=== PATIENT | female | born 1965 | race Caucasian/White ===

== ENCOUNTER 2018-12-22 15:04 | Observation (INO) ==
[2018-12-22] MEDS ORDERED: Isovue-370 500 ML BOTTLE IVP ONE (15:09)
[2018-12-22] MEDS ORDERED: *HR* FentaNYL (PF) 100 MCG/2 ML VIAL IVP ONE (15:12)
--- NOTE | 2018-12-22 15:12 | Emergency Department Note ---
Disposition Clinical Impression: Atypical chest pain Disposition: Home, Self-Care Condition: Good Time of Disposition: 17:45 General Adult HPI - General Chief complaint: ED Chest Pain Stated complaint: chest pain Time Seen by Provider: 12/22/18 15:08 - Related Data Home Medications Medication Instructions Recorded Confirmed Amitriptyline [Elavil] 25 mg PO HS 03/18/15 07/22/15 Aspirin 81 mg PO HS 03/18/15 07/22/15 Cholecalciferol (Vitamin D3) 4,000 unit PO TUTH 03/18/15 07/22/15 [Vitamin D] Duloxetine [Cymbalta] 30 mg PO BID 03/18/15 07/22/15 Lamotrigine [Lamictal] 100 mg PO HS 03/18/15 03/18/15 Levothyroxine [Synthroid] 88 mcg PO HS 03/18/15 07/22/15 Meloxicam [Mobic] 15 mg PO DAILY 03/18/15 07/22/15 Naproxen [Naprosyn] 500 mg PO PRN PRN 12/22/18 Pepcid 12/22/18 12/22/18 Tizanidine HCl [Zanaflex] 2 mg PO BID 12/22/18 Previous Rx's Medication Instructions Recorded Oxycodone HCl/Acetaminophen 1 tab PO Q8H #15 tablet 07/22/15 [Percocet 5-325 mg Tablet] Ibuprofen [Motrin] 600 mg PO Q6HR PRN #20 tab 05/01/17 Albuterol Sulfate [Albuterol 2 puff IH Q6HR #1 inh 05/26/17 Inhaler] Gabapentin [Neurontin] 300 mg PO TID #30 capsule 08/30/17 Meclizine [Antivert] 12.5 mg PO TID PRN #15 tablet 11/10/18 Methocarbamol [Robaxin] 750 mg PO Q8HR PRN 4 Days #12 12/22/18 tablet Nabumetone [Relafen] 500 mg PO BID 4 Days #8 tablet 12/22/18 Allergies Allergy/AdvReac Type Severity Reaction Status Date / Time No Known Allergies Allergy Verified 11/10/18 08:56 Past Medical History - Past Medical History Medical history: Reports: migraine, thyroid disease Surgical history: Reports: non-contributory Psychiatric history: Reports: anxiety 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 - Social History Smoking Status: Never smoker Smokeless Tobacco Status: No Alcohol use: Reports: none Drug use: Reports: none Course Vital Signs Temperature 98.2 F 12/22/18 15:07 Pulse Rate 79 12/22/18 15:07 Respiratory Rate 20 12/22/18 15:07 Blood Pressure 155/90 12/22/18 15:07 O2 Sat by Pulse Oximetry 100 12/22/18 15:07 Temperature 98.2 F 12/22/18 15:07 Pulse Rate 82 12/22/18 16:27 Respiratory Rate 17 12/22/18 16:27 Blood Pressure 115/69 12/22/18 16:27 O2 Sat by Pulse Oximetry 100 12/22/18 16:27 Oxygen Delivery Oxygen Delivery Room Air Medical Decision Making - Lab Data Result diagrams: 12/22/18 15:20 12/22/18 15:20 Lab Results 12/22/18 12/22/18 12/22/18 Range/Units 15:20 15:20 15:20 WBC 8.0 (4.3-11.1) K/mcL RBC 5.14 H (3.82-4.97) M/mcL Hgb 15.2 (11.5-15.4) g/dL Hct 46.3 H (35.3-44.9) % MCV 90.1 (83.0-100.0) fL MCH 29.6 (28.0-33.3) pg MCHC 32.8 (31.6-35.5) g/dL RDW 13.4 (11.5-14.5) % Plt Count 276 (140-400) K/mcL MPV 9.8 (9.4-12.4) fL Immature Gran % 0.5 (0-4) % Seg Neutrophils % 60.3 % Lymphocytes % 29.9 % Monocytes % 7.4 % Eosinophils % 1.4 % Basophils % 0.5 % Neutrophils # 4.8 (1.6-8.9) K/mcL Lymphocytes # 2.4 (0.6-4.6) K/mcL Monocytes # 0.6 (0.0-1.3) K/mcL Eosinophils # 0.1 (0.0-0.6) K/mcL Basophils # 0.0 (0.0-0.2) K/mcL PT 11.4 (9.4-12.1) Seconds INR 1.0 APTT 31.1 (26.0-36.0) Seconds D-Dimer 401 (0-500) ng/mLFEU Sodium 142 (136-145) mEq/L Potassium 3.2 L (3.5-5.1) mEq/L Chloride 106 (98-107) mEq/L Carbon Dioxide 25 (23-29) mEq/L BUN 16 (6-20) mg/dL Creatinine 0.96 (0.60-1.20) mg/dL Est GFR ( Amer) > 60 (> 60) Est GFR (Non-Af Amer) > 60 (> 60) BUN/Creatinine Ratio 17 (6-26) Glucose 99 (70-105) mg/dL Calculated Osmolality 295 (280-300) Calcium 9.8 (8.6-10.3) mg/dL Troponin I < 0.03 (< 0.04) ng/mL Lipase 25 (11-82) Units/L Attestation Statement - Attestation Attestation: I reviewed the residents documentation and agree with the residents assessment and plan of care. I have personally had face to face time with the patient. (Brief History, Brief Exam, and MDM) I personally supervised and was present for the ro/critical portions of the following procedures completed by the resident: (add procedures performed here). I attest to supervising the resident physician interpretation of the ECG Patient presents to the emergency department by EMS with chest pain. She appears mildly uncomfortable on exam. Initial concern for aortic pathology. CT dissection study ordered.
--- NOTE | 2018-12-22 15:17 | Emergency Department Note ---
Disposition Clinical Impression: Atypical chest pain Disposition: Home, Self-Care Condition: Good Instructions: Chest Pain (ED) Reasons to Return/Additional Instructions: Please return to the Emergency Department if you experience worsening of your current symptoms or any new symptoms including: Fever/chills, feeling like you might pass out, severe headache, lightheadedness/dizziness, confusion, difficulty walking, frequent falling or any trauma, vision changes, ringing in the ears, significant nose bleeding, difficult or painful swallowing, swelling of your neck or sensation of choking, chest pain, shortness of breath, abdominal pain/nausea/vomiting, blood in your urine or stool, or any other symptoms that may be concerning to you. Please follow up with your primary care physician or the [facility] within the next 24 hours Follow-up to previously scheduled gastroenterology appointment on Sunday. Take prescribed medication(s) exactly as instructed. Prescriptions: Nabumetone [Relafen] 500 mg PO BID 4 Days #8 tablet Methocarbamol [Robaxin] 750 mg PO Q8HR PRN 4 Days #12 tablet PRN Reason: Pain Referrals: NONE,PCP [Primary Care Provider] - [facility] [Outside] Forms: ED Satisfaction Letter Time of Disposition: 16:23 Chest Pain HPI - General Chief Complaint: ED Chest Pain Stated Complaint: chest pain Time Seen by Provider: 12/22/18 15:08 Source: patient, EMS Mode of arrival: EMS Limitations: no limitations Vital Signs Reviewed: Yes Nursing Notes Reviewed: Yes - History of Present Illness HPI Narrative: 53-year-old female past medical history of thyroid disease, previous workups for TIA, dysphagia which is scheduled for manometry this week, presenting for one hour history of sudden onset sharp ripping/tearing chest pain. The patient states she has been having discomfort for the past 2 days while driving to the store today had a sudden onset of severe chest pain which radiated from her midsternal region into her neck and right shoulder and radiated into her back. Patient initially presented to the urgent care where 911 was called and patient was transported to the ED via EMS. Patient was given 324 mg of aspirin at the urgent care prior to ED arrival. Patient states she has no past medical history of hypertension or history of aneurysms. Patient states that she is having difficulty breathing with this as well as severe anxiety. Patient states she is lightheaded dizzy and has numbness and tingling in her upper extremities. Patient denies nausea or vomiting. Upon my initial examination patient is sitting upright in hospital bed she is tachycardic, tachypneic, appears to be extremely anxious, she appears to be in [id number] distress due to her pain, my concern at this time is for dissection as she is stating neurological symptoms in the setting of chest pain radiating into her back. I will order a CT dissection study at this time with ED chest pain evaluation to include troponin and EKGs abdominal labs. Pt complaint: chest pain Onset (ago): hour(s) (H and states pain began one hour prior to arrival) Duration: constant Onset: during rest Pain Location: substernal Severity: severe Severity scale (1-10): 10 Quality: sharp, ripping Pain Radiation: RUE, back, neck, jaw/teeth Associated symptoms: Reports: dyspnea Treatments prior to arrival chest pain: aspirin (Patient was given 324 mg of aspirin at urgent care prior to EMS arrival.) - Related Data Home Medications Medication Instructions Recorded Confirmed Amitriptyline [Elavil] 25 mg PO HS 03/18/15 07/22/15 Aspirin 81 mg PO HS 03/18/15 07/22/15 Cholecalciferol (Vitamin D3) 4,000 unit PO TUTH 03/18/15 07/22/15 [Vitamin D] Duloxetine [Cymbalta] 30 mg PO BID 03/18/15 07/22/15 Lamotrigine [Lamictal] 100 mg PO HS 03/18/15 03/18/15 Lansoprazole [Prevacid] 30 mg PO HS 03/18/15 07/22/15 Levothyroxine [Synthroid] 100 mcg PO HS 03/18/15 07/22/15 Meloxicam [Mobic] 15 mg PO DAILY 03/18/15 07/22/15 Previous Rx's Medication Instructions Recorded Oxycodone HCl/Acetaminophen 1 tab PO Q8H #15 tablet 07/22/15 [Percocet 5-325 mg Tablet] Ibuprofen [Motrin] 600 mg PO Q6HR PRN #20 tab 05/01/17 Albuterol Sulfate [Albuterol 2 puff IH Q6HR #1 inh 05/26/17 Inhaler] Gabapentin [Neurontin] 300 mg PO TID #30 capsule 08/30/17 Meclizine [Antivert] 12.5 mg PO TID PRN #15 tablet 11/10/18 Methocarbamol [Robaxin] 750 mg PO Q8HR PRN 4 Days #12 12/22/18 tablet Nabumetone [Relafen] 500 mg PO BID 4 Days #8 tablet 12/22/18 Allergies Allergy/AdvReac Type Severity Reaction Status Date / Time No Known Allergies Allergy Verified 11/10/18 08:56 Review of Systems: *See History of Present Illness for more detail Constitutional: Denies: fever, chills Cardiovascular: Admits: chest pain radiating into her back, neck/jaw and upper right extremity. Respiratory: Admits: dyspnea Gastrointestinal: Denies: abdominal pain, nausea, vomiting, diarrhea, constipation, hematemesis, melena, hematochezia Genitourinary: Denies: hematuria Musculoskeletal: Denies: back pain, neck pain Neurological: Patient admits to weakness, lightheadedness/dizziness numbness and paresthesias. Denies: headache Endocrine: Denies: fatigue All systems ED: reviewed and negative except as stated. 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 Anterior neck is supple without swelling. *Chest: Symmetric chest wall rise *Heart: Cardiac rate is tachycardic with regular rhythm with S1 and S2 , no S3 or S4 appreciated, no murmurs, gallops, rubs, or clicks. *Lungs: Lungs are clear to auscultation bilaterally, without accessory muscle use or prolonged expiratory phase. No wheezes, rhonchi or stridor appreciated. Abdomen: Abdomen is flat, soft to palpation, normal bowel sounds. No abdominal b ruit auscultated. Non-distended, non-rigid, no organomegaly, no ascites appreciated. No pulsatile mass, no tenderness or guarding to palpation in all four quadrants, no rebound Extremities: Normal capillary refill without evidence of pedal edema, joint swelling or erythema. Pulses/motor intact in all 4 extremities. Psychiatric exam: Patient appears extremely anxious Integumentary: warm, dry, intact, normal color. No rash, cyanosis, diaphoresis, erythema, or pallor - General Limitations: no limitations General appearance: alert, in no apparent distress Course Course Narrative: CT scan dissection study ED chest pain workup with troponin EKG/old EKG chest x-ray Abdominal labs Patient started received aspirin at urgent care, I will give fentanyl this time for pain management with likely nitroglycerin trial after CT scan if pain is not resolved. Vital Signs Temperature 98.2 F 12/22/18 15:07 Pulse Rate 79 12/22/18 15:07 Respiratory Rate 20 12/22/18 15:07 Blood Pressure 155/90 12/22/18 15:07 O2 Sat by Pulse Oximetry 100 12/22/18 15:07 Temperature 98.2 F 12/22/18 15:07 Pulse Rate 80 12/22/18 15:15 Respiratory Rate 20 12/22/18 15:15 Blood Pressure 131/70 12/22/18 15:15 O2 Sat by Pulse Oximetry 100 12/22/18 15:15 Oxygen Delivery Oxygen Delivery Room Air Chest Pain - MDM Narrative Medical decision making narrative: The patient's laboratory, imaging an EKG results show no acute pathology. Shared decision making was utilized with the patient and her family at bedside discussing discharge home versus admission the hospital. Patient states that she would prefer discharge at this time with follow-up with her primary care physician and gastroenterology at her previously scheduled appointment on Sunday. Patient will be sent home with ED return precautions and instructions to keep these follow-ups as previously scheduled as well as her PCP within 24 hours. Patient was sent home with Relafen and Robaxin for the next 4 days for the management of her symptoms. Patient verbalizes her understanding and agreement this plan is hemodynamically stable time of discharge. - Lab Data Lab results reviewed: Yes I reviewed the patient's lab results. Result diagrams: 12/22/18 15:20 12/22/18 15:20 Lab Results 07/21/19 07/21/19 07/21/19 Range/Units 15:20 15:20 15:20 WBC 8.0 (4.3-11.1) K/mcL RBC 5.14 H (3.82-4.97) M/mcL Hgb 15.2 (11.5-15.4) g/dL Hct 46.3 H (35.3-44.9) % MCV 90.1 (83.0-100.0) fL MCH 29.6 (28.0-33.3) pg MCHC 32.8 (31.6-35.5) g/dL RDW 13.4 (11.5-14.5) % Plt Count 276 (140-400) K/mcL MPV 9.8 (9.4-12.4) fL Immature Gran % 0.5 (0-4) % Seg Neutrophils % 60.3 % Lymphocytes % 29.9 % Monocytes % 7.4 % Eosinophils % 1.4 % Basophils % 0.5 % Neutrophils # 4.8 (1.6-8.9) K/mcL Lymphocytes # 2.4 (0.6-4.6) K/mcL Monocytes # 0.6 (0.0-1.3) K/mcL Eosinophils # 0.1 (0.0-0.6) K/mcL Basophils # 0.0 (0.0-0.2) K/mcL PT 11.4 (9.4-12.1) Seconds INR 1.0 APTT 31.1 (26.0-36.0) Seconds D-Dimer 401 (0-500) ng/mLFEU Sodium 142 (136-145) mEq/L Potassium 3.2 L (3.5-5.1) mEq/L Chloride 106 (98-107) mEq/L Carbon Dioxide 25 (23-29) mEq/L BUN 16 (6-20) mg/dL Creatinine 0.96 (0.60-1.20) mg/dL Est GFR ( Amer) > 60 (> 60) Est GFR (Non-Af Amer) > 60 (> 60) BUN/Creatinine Ratio 17 (6-26) Glucose 99 (70-105) mg/dL Calculated Osmolality 295 (280-300) Calcium 9.8 (8.6-10.3) mg/dL Troponin I < 0.03 (< 0.04) ng/mL Lipase 25 (11-82) Units/L - Radiology Data Radiology results reviewed: Yes I reviewed the patient's radiology results. CT Dissection 12/22/18 15:09 IMPRESSION: Negative CTA chest, abdomen and pelvis with no evidence of acute process and unremarkable appearance of the aorta. D/ / Chandana Montes MD / Chandana Montes MD Interpreting Provider: Chandana Montes MD - EKG Data EKG attestation: Yes I reviewed and interpreted this EKG. EKG results narrative: Patient's EKG shows sinus rhythm with a heart rate of 73 bpm, NC interval of 139 ms, QRS samaritan of 91 ms, QT/QTc interval 39/429 ms respectively. There are no significant ST segment elevations, depressions, pathologic Q waves, abnormal T-wave inversions, nor any signs of acute ischemic change. This EKG that was performed today is generally consistent with prior EKG that was performed on 11/10/2018. Heart Score - Score History: Moderately Suspicious EKG: Normal Age: 45-65 Risk Factors: 1-2 risk factors Troponin: Less than normal limit HEART Score Total: 3
[2018-12-22 15:31] LABS: Basophils % 0.5 %; Eosinophils # 0.1 K/mcL (0.0-0.6); Eosinophils % 1.4 %; Hematocrit 46.3 % (35.3-44.9); Hemoglobin 15.2 g/dL (11.5-15.4); Immature Granulocytes % 0.5 % (0-4); Lymphocytes # 2.4 K/mcL (0.6-4.6); Lymphocytes % 29.9 %; Mean Corpuscular HGB Conc 32.8 g/dL (31.6-35.5); Mean Corpuscular Hemoglobin 29.6 pg (28.0-33.3); Mean Corpuscular Volume 90.1 fL (83.0-100.0); Mean Platelet Volume 9.8 fL (9.4-12.4); Monocytes # 0.6 K/mcL (0.0-1.3); Monocytes % 7.4 %; Neutrophils # 4.8 K/mcL (1.6-8.9); Platelet Count 276 K/mcL (140-400); Red Blood Count 5.14 M/mcL (3.82-4.97); Red Cell Distribution Width 13.4 % (11.5-14.5); Segmented Neutrophils % 60.3 %
[2018-12-22 15:41] LABS: Prothrombin Time 11.4 Seconds (9.4-12.1)
[2018-12-22 15:43] LABS: Activated Partial Thrombo Time 31.1 Seconds (26.0-36.0)
[2018-12-22 15:56] LABS: BUN/Creatinine Ratio 17 (6-26); Blood Urea Nitrogen 16 mg/dL (6-20); Calcium 9.8 mg/dL (8.6-10.3); Carbon Dioxide 25 mEq/L (23-29); Chloride 106 mEq/L (98-107); Glucose 99 mg/dL (70-105); Lipase 25 Units/L (11-82); Osmolality,Calculated 295 (280-300); Potassium 3.2 mEq/L (3.5-5.1); Sodium 142 mEq/L (136-145); Troponin I < 0.03 ng/mL (< 0.04); eGFR For African Americans > 60 (> 60); eGFR For Non-African Americans > 60 (> 60)
[2018-12-22] MEDS ORDERED: *HR* HYDROcodone/Acet 5/325 mg TABLET PO PRN (17:17)
[2018-12-22] MEDS ORDERED: Ondansetron 4 MG/2 ML VIAL IVP PRN (17:17)
[2018-12-22] MEDS ORDERED: Naloxone 0.4 MG/ML INJ IVP PRN (17:17)
[2018-12-22] MEDS ORDERED: Acetaminophen 325 MG TABLET PO PRN (17:17)
--- NOTE | 2018-12-22 17:31 | Internal Med History&Physical ---
Date of Encounter: 12/22/18 Time of Encounter: 09:00 Internal Medicine - H&P: HPI Chief complaint: Chest pain Admitted From: Home Plans for Post Hospital Care: Home History of present illness: Ms. Ferreira is a 53 year old female with history of migraine, depression, anxiety, hypothyroidism who came into the hospital with chest pain. Her symptoms started this a.m. when she had mild substernal discomfort lasted for 1015 minutes and then went away. She was driving when she had similar substernal chest pain, radiating to the right side of her chest and to her left neck and back, 9/10, pressure-like pain, with no aggravating or aggravating factors. Patient denied nausea/vomiting/jaw or left arm pain. Her pain is not associated with food intake or exertion. Her pain is not interfering with her sleep. She has no recent leg swelling, long trip or travel. She is not on hormone therapy and she does not smoke. Patient used to have panic attacks but her pain today was different than her previous panic attacks. She denied any palpitation or shortness of breath. Of note, patient has been evaluated recently with barium swallow, EGD for dysphagia. Her dysphagia started a few years ago after her tonsillectomy. She does not remember the result of her tests but she is scheduled for esophageal manometry next Sunday. She denied any recent weight loss or oral thrush. She denied any heartburn and she is on PPI daily. She denied recent use of NSAIDs however she takes naproxen when needed for migraine. Patient had recent CT scan 1 month ago with negative findings for any sign of obstruction. She also had CT a head and neck and the same time with negative findings as well. In the ER, patient was hemodynamically stable. First troponin was negative, EKG did not reveal any ischemic changes. CT dissection study was negative for any dissection. D-dimer was negative. Patient will be admitted to the floor to rule out ACS. Past Med Surg Social Fam HX - Past Medical History Source: patient Medical history: arthritis, migraine, thyroid disease Additional medical history: hypothyroidism Psychiatric history: anxiety - Past Surgical History Surgical History: non-contributory Additional surgical history: vein stripping. right breast lumpectomy. LOOP recorder in/out. wisdom teeth extraction. cyst removed from head. bilateral eyes. right foot. throat sx x3 - Social History Smoking Status: Never smoker Smokeless Tobacco Status: No Alcohol use: none Drug use: none - Additional Family History Additional family history: Mother had CAD and stents at age of 70 Internal Medicine - H&P: Meds Amitriptyline [Elavil] 25 mg PO HS 03/18/15 [History] Aspirin 81 mg PO HS 03/18/15 [History] Cholecalciferol (Vitamin D3) [Vitamin D] 4,000 unit PO TUTH 03/18/15 [History] Duloxetine [Cymbalta] 30 mg PO BID 03/18/15 [History] Lamotrigine [Lamictal] 100 mg PO HS 03/18/15 [History] Levothyroxine [Synthroid] 88 mcg PO HS 03/18/15 [History] Meloxicam [Mobic] 15 mg PO DAILY 03/18/15 [History] Oxycodone HCl/Acetaminophen [Percocet 5-325 mg Tablet] 1 tab PO Q8H #15 tablet 07/22/15 [Rx] Ibuprofen [Motrin] 600 mg PO Q6HR PRN #20 tab 05/01/17 [Rx] Albuterol Sulfate [Albuterol Inhaler] 2 puff IH Q6HR #1 inh 05/26/17 [Rx] Gabapentin [Neurontin] 300 mg PO TID #30 capsule 08/30/17 [Rx] Meclizine [Antivert] 12.5 mg PO TID PRN #15 tablet 11/10/18 [Rx] Methocarbamol [Robaxin] 750 mg PO Q8HR PRN 4 Days #12 tablet 12/22/18 [Rx] Nabumetone [Relafen] 500 mg PO BID 4 Days #8 tablet 12/22/18 [Rx] Naproxen [Naprosyn] 500 mg PO PRN PRN 12/22/18 [History] Pepcid 12/22/18 [History] Tizanidine HCl [Zanaflex] 2 mg PO BID 12/22/18 [History] Allergy/AdvReac Type Severity Reaction Status Date / Time No Known Allergies Allergy Verified 11/10/18 08:56 All Systems PM: A 10-system review of systems was performed and is negative for pertinent findings except as documented above in the HPI. - Constitutional Vitals: Temp Pulse Resp BP Pulse Ox 98.2 F 82 17 115/69 100 12/22/18 15:07 12/22/18 16:27 12/22/18 16:27 12/22/18 16:27 12/22/18 16:27 Exam: General: Patient is alert, oriented 3. No distress. Head: Atraumatic, normal inspection, normocephalic. Eye: EOMI, PERRLA, no scleral icterus noted. ENT: Mucous membranes moist. No odontogenic infection noted. Neck: Normal inspection, no meningismus. Respiratory: No respiratory distress, rhonchi, or wheezes noted. Cardiovascular: Regular rate and regular rhythm, S1 and S2 audible. No murmurs, rubs, or gallops. GI: Soft, nondistended, normal bowel sounds. Extremities:No joint swelling, pedal edema, or tenderness noted. Neurological: Alert, oriented 3, no focal deficits. Psychiatric: normal affect, normal mood. Skin: Dry, intact, warm. Normal color. No rashes. Internal Med - H&P Results - Labs CBC & Chem 7: 12/22/18 15:20 12/22/18 15:20 Labs: Short CBC 12/22/18 Range/Units 15:20 WBC 8.0 (4.3-11.1) K/mcL Hgb 15.2 (11.5-15.4) g/dL Hct 46.3 H (35.3-44.9) % Plt Count 276 (140-400) K/mcL Neutrophils # 4.8 (1.6-8.9) K/mcL BMP 12/22/18 15:20 Sodium 142 Potassium 3.2 L Chloride 106 Carbon Dioxide 25 BUN 16 Creatinine 0.96 Glucose 99 Calcium 9.8 Cardiac Enzymes 12/22/18 Range/Units 15:20 Troponin I < 0.03 (< 0.04) ng/mL - EKG Data -: EKG Interpreted by Myself EKG shows normal: sinus rhythm Rate: normal - EKG Data Prior EKG available for review: yes When compared to previous EKG: there is no significant change - Impressions ITS Impressions CT Dissection 12/22/18 15:09 IMPRESSION: Negative CTA chest, abdomen and pelvis with no evidence of acute process and unremarkable appearance of the aorta. D/ / Chandana Montes MD / Chandana Montes MD Interpreting Provider: Chandana Montes MD - Assessment and Plan (1) Atypical chest pain Current Visit: Yes Status: Acute (2) Migraine Current Visit: No Status: Chronic Qualifiers: Migraine type: unspecified Status migrainosus presence: without status migrainosus Intractability: not intractable Qualified Code(s): G43.909 - Migraine, unspecified, not intractable, without status migrainosus (3) Dysphagia Current Visit: Yes Status: Acute Qualifiers: Dysphagia type: esophageal phase Qualified Code(s): R13.10 - Dysphagia, unspecified (4) DVT prophylaxis Current Visit: Yes Status: Acute (5) Hypothyroidism Current Visit: Yes Status: Chronic Qualifiers: Hypothyroidism type: unspecified Qualified Code(s): E03.9 - Hypothyroidism, unspecified - Summary of Assessment and Plan Summary of Assessment and Plan: 53-year-old female with history of dysphagia, migraine, hypothyroidism who was admitted to the hospital for substernal chest pain. Her symptoms are measures following: Atypical chest pain: - Substernal, nonexertional - EKG with no ischemic changes, troponin 1 negative - Moderate pretest probability, we will proceed with stress test tomorrow. NPO after midnight. - We will trend another 2 sets of troponin every 6 hours. Dysphagia: - Chronic issue, workup including CTA of head and neck, CT neck were no significant findings. - She also had barium swallow, EGD as outpatient which I do not have records for. - She is scheduled for esophageal manometry this Sunday. Hypokalemia: - On replacement therapy was given. - Check BMP tomorrow. Hypothyroidism; - Continue home dose levothyroxine Migraine: - Patient has no headache today. - Continue home dose prophylactic therapy GERD: - Continue PPI Depression/anxiety: - Continue home dose medication. DVT prophylaxis: SC heparin - Time Spent With Patient Total time spent is greater than 50% in coordination of care (as documented) at patient's floor/unit and/or counseling patient: Greater than 35 minutes
[2018-12-22] MEDS: *HR* Heparin 5,000 UNIT/ML VIAL SQ SCH (18:50)
[2018-12-22] MEDS: Aspirin 81 MG TAB.CHEW PO SCH (20:25)
[2018-12-23 03:15] LABS: BUN/Creatinine Ratio 21 (6-26); Blood Urea Nitrogen 18 mg/dL (6-20); Calcium 8.8 mg/dL (8.6-10.3); Carbon Dioxide 25 mEq/L (23-29); Chloride 107 mEq/L (98-107); Glucose 103 mg/dL (70-105); Magnesium 1.8 mg/dL (1.6-2.6); Osmolality,Calculated 294 (280-300); Potassium 3.6 mEq/L (3.5-5.1); Sodium 141 mEq/L (136-145); eGFR For African Americans > 60 (> 60); eGFR For Non-African Americans > 60 (> 60)
[2018-12-23] MEDS: *HR* Heparin 5,000 UNIT/ML VIAL SQ SCH ×2 (06:12→21:18)
[2018-12-23] MEDS ORDERED: Regadenoson 0.4 MG/5 ML SYRINGE IVP ONE (06:13)
--- NOTE | 2018-12-23 13:02 | Cardiology Consult Note ---
Date of Encounter: 12/23/18 Time of Encounter: 13:00 Assessment and Plan (1) Atypical chest pain Current Visit: Yes Status: Acute Per Cardiology: Troponins negative. Atypical presentation. ECG shows sinus rhythm with no acute changes. Apparent negative stress test a few months ago at outside facility-- will attempt to obtain medical records. Reported catheterization around 2010 or 2011 at outside facility with "no major blockages". Also, we will attempt to obtain. Patient and are agreeable to check an echocardiogram and monitoring. We will consider further ischemic evaluation tomorrow morning if clinically appropriate. Of note, has outpatient esophageal evaluation ending this week with GI. Discussed with primary service. Discussed and reviewed with Dr. Stevens. Discussion w patient/family: The assessment and plan as outlined above was discussed with the patient and/or family members who expressed understanding and agreement. All questions were answered. Thank you for involving us in the care of your patient. Please call with any questions. History of Present Illness Consult date: 12/23/18 Requesting physician: Domenico Brody Consult reason: CP Chief complaint: CP History of present illness: Ms. Ferreira is a 53 year old female with a relevant past medical history of history of migraine, depression, anxiety, hypothyroidism, GERD. Cardiology consult for chest pain. Seen today with at bedside. She reports intermittent episodes of midst ernal chest tightness/squeezing while at rest over the past few months. She reports outpatient stress test completed at outside facility apparently negative a few months ago. She indicates catheterization around 2010 2011 no major blockages. She reports family history mother stenting in her 60s. She denies any smoking history or diabetes mellitus. Reports borderline hyperlipidemia. She became she came to the ER due to symptoms returning yesterday afternoon while driving that lasted longer than usual became more intense. She reports radiation to her back with right shoulder discomfort as well. She indicates when she expresses symptoms she does feel somewhat short of breath and anxious. Additionally, reports has pending outpatient esophageal evaluation later this week for difficulty swallowing. She does report history of GERD and takes PPI, however missed a few doses this week. Past Med Surg Social Fam HX - Past Medical History Attestation: Yes The following information was validated with the patient. Source: patient, old records reviewed, obtained from family Medical history: arthritis, GERD, migraine, thyroid disease Additional medical history: hypothyroidism Psychiatric history: anxiety - Past Surgical History Surgical History: non-contributory Additional surgical history: vein stripping. right breast lumpectomy. LOOP recorder in/out. wisdom teeth extraction. cyst removed from head. bilateral eyes. right foot. throat sx x3 - Social History Smoking Status: Never smoker Smokeless Tobacco Status: No Alcohol use: none Drug use: none - Family History Mother Hx Family Cardiac Disorders: Yes (CAD) Medications and Allergies Amitriptyline [Elavil] 25 mg PO HS 03/18/15 [History] Aspirin 81 mg PO HS 03/18/15 [History] Cholecalciferol (Vitamin D3) [Vitamin D] 4,000 unit PO TUTH 03/18/15 [History] Duloxetine [Cymbalta] 30 mg PO BID 03/18/15 [History] Lamotrigine [Lamictal] 100 mg PO HS 03/18/15 [History] Levothyroxine [Synthroid] 88 mcg PO HS 03/18/15 [History] Meloxicam [Mobic] 15 mg PO DAILY 03/18/15 [History] Oxycodone HCl/Acetaminophen [Percocet 5-325 mg Tablet] 1 tab PO Q8H #15 tablet 07/22/15 [Rx] Ibuprofen [Motrin] 600 mg PO Q6HR PRN #20 tab 05/01/17 [Rx] Albuterol Sulfate [Albuterol Inhaler] 2 puff IH Q6HR #1 inh 05/26/17 [Rx] Gabapentin [Neurontin] 300 mg PO TID #30 capsule 08/30/17 [Rx] Meclizine [Antivert] 12.5 mg PO TID PRN #15 tablet 11/10/18 [Rx] Methocarbamol [Robaxin] 750 mg PO Q8HR PRN 4 Days #12 tablet 12/22/18 [Rx] Nabumetone [Relafen] 500 mg PO BID 4 Days #8 tablet 12/22/18 [Rx] Naproxen [Naprosyn] 500 mg PO PRN PRN 12/22/18 [History] Pepcid 12/22/18 [History] Tizanidine HCl [Zanaflex] 2 mg PO BID 12/22/18 [History] Allergy/AdvReac Type Severity Reaction Status Date / Time No Known Allergies Allergy Verified 06/09/19 08:56 All Systems Review: The remainder of the systems were reviewed and are negative - Cardiovascular Cardiovascular: as per HPI, chest pain at rest, dyspnea at rest - Gastrointestinal Gastrointestinal: abdominal pain, dysphagia, nausea Physical Examination Vital Signs, Last 4 Hours Temp Pulse Resp BP Pulse Ox 12/23/18 11:10 97.9 F 72 16 96/49 97 12/23/18 09:20 16 95 General: Conversant, No Apparent Distress HEENT: Atraumatic, Normocephaly, Mucus Membranes Moist Neck: No JVD, Normal carotid pulses Cardiac: Reg Rate and Rhythm, Normal S1 and S2, No Murmur Lungs: Normal Breath Sounds, No Wheeze, Rales, Rhonchi Neuro: Alert and responsive, No focal deficits noted Abdomen: Soft, Non-Tender Skin: No rashes noted on visualized skin Musculoskeletal: No Chest Wall Tenderness Extremities: No Clubbing, No Cyanosis, No Edema, Normal Pulses Results 12/22/18 15:20 12/23/18 02:32 Lab Results Laboratory Tests 12/22/18 12/22/18 12/22/18 15:20 15:20 15:20 Hgb 15.2 Hct 46.3 H INR 1.0 D-Dimer 401 Creatinine Est GFR (Non-Af Amer) Troponin I < 0.03 TSH 12/22/18 12/23/18 12/23/18 20:49 02:32 02:32 Hgb Hct INR D-Dimer Creatinine 0.85 Est GFR (Non-Af Amer) > 60 Troponin I < 0.03 < 0.03 TSH 12/23/18 02:32 Hgb Hct INR D-Dimer Creatinine Est GFR (Non-Af Amer) Troponin I TSH 4.[address] Dissection 12/22/18 15:09 IMPRESSION: Negative CTA chest, abdomen and pelvis with no evidence of acute process and unremarkable appearance of the aorta. D/ / Chandana Montes MD / Chandana Montes MD Interpreting Provider: Chandana Montes MD Active Medications Acetaminophen (Tylenol) 650 mg PO Q6HR PRN PRN Reason: Mild Pain/Fever Stop: 06/23/19 17:18 Last Admin: 12/23/18 11:19 Dose: 650 mg Documented by: Hydrocodone Bitart/Acetaminophen ([place] 5-325 Mg) 1 tab PO Q6HR PRN PRN Reason: Moderate to Severe Pain Stop: 06/23/19 17:18 Albuterol Sulfate (Proventil Inhaler) 2 puff IH [id number] PRN PRN Reason: Shortness Of Breath Stop: 06/24/19 10:01 Aspirin (Aspirin) 81 mg PO HS [facility] Stop: 06/23/19 21:01 Last Admin: 12/22/18 20:25 Dose: 81 mg Documented by: Duloxetine HCl (Cymbalta) 30 mg PO BID [facility] Stop: 06/23/19 21:01 Last Admin: 12/23/18 09:39 Dose: Not Given Documented by: Heparin Sodium (Porcine) (Heparin) 5,000 unit SQ Q12HCO [facility] Stop: 06/23/19 18:01 Last Admin: 12/23/18 06:12 Dose: 5,000 unit Documented by: Naloxone HCl (Narcan) 0.4 mg IVP Q2MPRN PRN PRN Reason: SEE COMMENTS Stop: 06/23/19 17:18 Omeprazole (Prilosec) 40 mg PO DAILY@0630 [facility]; Protocol Stop: 06/24/19 06:31 Last Admin: 12/23/18 06:10 Dose: 40 mg Documented by: Ondansetron HCl (Zofran) 4 mg IVP Q8HR PRN PRN Reason: Nausea And Vomiting Stop: 06/23/19 17:18 - Imaging and Cardiology Chest Xray: report reviewed Stress Test: other Echo: pending Cardiac cath: other - EKG Interpretation EKG results cardiology: personally reviewed, normal ECG, sinus rhythm, no diagnostic ischemia Consult Discharge Plan - Plan Referrals: Timmy Parks, DOWEL STICKER OPERATOR [Non-Partnered Physician] -
--- NOTE | 2018-12-23 14:56 | Internal Med Progress Note ---
Hospitalist Progress Note - Encounter Date of Encounter: 12/23/18 Time of Encounter: 10:45 - Subjective Interval History: Ms. Ferreira is a 53 y/o F with known PMH of migraine, depression, anxiety, hypothyroidism and mild CAD ( Had LHC in 2009 which showed mild CAD ) now she presented to ER with chest pain. Pt stated her CP was located sub sternally and radiating to b/l neck, intermittent pain, 6/10 in severity lasted for 15-20 minutes. She did mention she had normal stress test at [place] 3-4 months ago. She denied any active CP now. She also mentioned, she has been evaluated recently with barium swallow, EGD for dysphagia. Her dysphagia started a few years ago after her tonsillectomy. She does not remember the result of her tests but she is scheduled for esophageal manometry by our GI next Sunday. - Exam Vitals: Temp Pulse Resp BP Pulse Ox 97.9 F 72 16 96/49 97 12/23/18 11:10 12/23/18 11:10 12/23/18 11:10 12/23/18 11:10 12/23/18 11:10 Exam: Gen: Alert, awake, Oriented to time,place and person Chest: Diminished breath sounds B/L, No wheezing, No crackles, No rales Heart: S1S2+ RRR No murmurs Abd: Soft, NT, BS +, No organomegaly Ext: No edema, pulses are palpable, No calf tenderness Neuro : No acute focal neuro deficits noticed Skin: No rash. - Assessment and Plan (1) Atypical chest pain Current Visit: Yes Status: Acute Assessment and Plan: Serial trop x 3 negative no acute ischemic changes on EKG She had normal stress test 3-4 months ago will get records from [facility] 2 D Echo ordered Consulted Card for further eval NPO after mid night (2) Migraine Current Visit: No Status: Chronic Assessment and Plan: cont home meds (3) Dysphagia Current Visit: Yes Status: Acute Assessment and Plan: Will talk to GI about further work up cont PPI (4) DVT prophylaxis Current Visit: Yes Status: Acute Assessment and Plan: on SQ Heparin (5) Hypothyroidism Current Visit: Yes Status: Chronic Assessment and Plan: resumed home med Levothyroixine - Time Spent with Patient Total time spent is greater than 50% in coordination of care (as documented) at patient's floor/unit and/or counseling patient: Internal Medicine: Result - Labs CBC & Chem 7: 12/22/18 15:20 12/23/18 02:32 Labs: Short CBC 12/22/18 Range/Units 15:20 WBC 8.0 (4.3-11.1) K/mcL Hgb 15.2 (11.5-15.4) g/dL Hct 46.3 H (35.3-44.9) % Plt Count 276 (140-400) K/mcL Neutrophils # 4.8 (1.6-8.9) K/mcL BMP 12/22/18 12/23/18 15:20 02:32 Sodium 142 141 Potassium 3.2 L 3.6 Chloride 106 107 Carbon Dioxide 25 25 BUN 16 18 Creatinine 0.96 0.85 Glucose 99 103 Calcium 9.8 8.8 Cardiac Enzymes 12/22/18 12/22/18 12/23/18 Range/Units 15:20 20:49 02:32 Troponin I < 0.03 < 0.03 < 0.03 (< 0.04) ng/mL - ABG Interpretation ABG results: PT/INR, D-dimer PT 11.4 Seconds (9.4-12.1) 12/22/18 15:20 D-Dimer 401 ng/mLFEU (0-500) 12/22/18 15:20 - Impressions Impressions CT Dissection 12/22/18 15:09 IMPRESSION: Negative CTA chest, abdomen and pelvis with no evidence of acute process and unremarkable appearance of the aorta. D/ / Chandana Montes MD / Chandana Montes MD Interpreting Provider: Chandana Montes MD Consult Discharge Plan - Plan Referrals: Timmy Parks, MAINFRAME APPLICATIONS DEVELOPER [Non-Partnered Physician] - (2) Migraine Qualifiers: Migraine type: unspecified Status migrainosus presence: without status migrainosus Intractability: not intractable Qualified Code(s): G43.909 - Migraine, unspecified, not intractable, without status migrainosus (3) Dysphagia Qualifiers: Dysphagia type: esophageal phase Qualified Code(s): R13.10 - Dysphagia, unspecified (5) Hypothyroidism Qualifiers: Hypothyroidism type: unspecified Qualified Code(s): E03.9 - Hypothyroidism, unspecified
[2018-12-23] MEDS: Gabapentin 300 MG CAPSULE PO SCH ×2 (16:06→21:18)
[2018-12-23] MEDS ORDERED: lamoTRIgine 100 MG TABLET PO SCH (21:00)
[2018-12-23] MEDS: Aspirin 81 MG TAB.CHEW PO SCH (21:18)
[2018-12-23] MEDS: SUMAtriptan succinate 25 MG TABLET PO PRN (21:36)
[2018-12-24] MEDS: Gabapentin 300 MG CAPSULE PO SCH ×2 (01:02→09:05)
[2018-12-24] MEDS: *HR* Heparin 5,000 UNIT/ML VIAL SQ SCH (05:52)
[2018-12-24 07:52] VITALS: BP 123/75
[2018-12-24] MEDS: SUMAtriptan succinate 25 MG TABLET PO PRN (09:05)
--- NOTE | 2018-12-24 09:31 | Cardiology Progress Note ---
Date of Encounter: 12/24/18 Time of Encounter: 09:30 Assessment and Plan (1) Atypical chest pain Current Visit: Yes Status: Acute Per Cardiology: Troponins negative x 3. ECHO: Impressions: LVEF 60%. Normal LV chamber size, wall thickness and function. Normal right ventricular structure and function. No evidence of pulmonary hypertension. No hemodynamically significant valvular dysfunction. Left Ventricular Wall Motion: Rest Echo Findings The mid anterior lateral and mid inferior lateral george were not visualized. All other wall segments showed normal motion. Medical records received from outside facility-- had negative nuclear stress test October 2018. Left heart catheterization February 2010 showed proximal LAD 20% lesion (nonobstructive) only. Patient and agreeable to proceed with outpatient GI follow-up follow-up as planned and f/u with cardiology in 3-4 weeks for reevaluation. Discussed with primary service, anticipate discharge home. All questions answered. Discussion w patient/family: The assessment and plan as outlined above was discussed with the patient and/or family members who expressed understanding and agreement. All questions were answered. Thank you for involving us in the care of your patient. Please call with any questions. Subjective Principal diagnosis: CP Interval history: Denies any concerns overnight. Chest pain-free. Denies any shortness of breath or palpitations. Objective Vital Signs, Last 4 Hours Temp Pulse Resp BP Pulse Ox 12/24/18 07:45 98.4 F 62 17 123/75 97 General: Conversant, No Apparent Distress HEENT: Atraumatic, Normocephaly, Mucus Membranes Moist Neck: No JVD, Normal carotid pulses Cardiac: Reg Rate and Rhythm, Normal S1 and S2, No Murmur Lungs: Normal Breath Sounds, No Wheeze, Rales, Rhonchi Neuro: Alert and responsive, No focal deficits noted Abdomen: Soft, Non-Tender Skin: No rashes noted on visualized skin Musculoskeletal: No Chest Wall Tenderness Extremities: No Clubbing, No Cyanosis, No Edema, Normal Pulses Results 12/22/18 15:20 12/23/18 02:32 Laboratory Tests 12/22/18 12/22/18 12/23/18 15:20 20:49 02:32 Creatinine Est GFR (Non-Af Amer) Troponin I < 0.03 < 0.03 < 0.03 TSH 12/23/18 12/23/18 02:32 02:32 Creatinine 0.85 Est GFR (Non-Af Amer) > 60 Troponin I TSH 4.343 Impressions Echocardiogram 12/23/18 13:36 Impressions: LVEF 60%. Normal LV chamber size, wall thickness and function. Normal right ventricular structure and function. No evidence of pulmonary hypertension. No hemodynamically significant valvular dysfunction. Left Ventricular Wall Motion: Rest Echo Findings The mid anterior lateral and mid inferior lateral george were not visualized. All other wall segments showed normal motion. Findings: Study Quality * Technically sub-optimal due to poor echocardiographic windows. ECG Findings * Normal sinus rhythm. Left Ventricle * LVEF 60%. * Normal LV chamber size, wall thickness and function. * Normal left ventricular diastolic function. Right Ventricle * Normal right ventricular structure and function. Left Atrium * Normal left atrial size. Right Atrium * Normal right atrial size. Interatrial Septum * Interatrial septum not well evaluated. Aortic Valve * Aortic valve not well visualized. * No aortic stenosis. * Trace aortic regurgitation. Mitral Valve * Normal mitral valve structure. * No mitral regurgitation. * No mitral stenosis. Tricuspid Valve * Trace tricuspid regurgitation. * No tricuspid stenosis. * Normal tricuspid valve structure. * No evidence of pulmonary hypertension. Pulmonic Valve * Pulmonic valve not well visualized. Aorta * Normally sized aortic root. Pericardium * The pericardium appears normal. IVC * Normal IVC dimensions and inspiratory collapse. Pulmonary Artery * Pulmonary artery not well visualized. Active Medications Acetaminophen (Tylenol) 650 mg PO Q6HR PRN PRN Reason: Mild Pain/Fever Stop: 06/23/19 17:18 Last Admin: 12/23/18 11:19 Dose: 650 mg Documented by: Hydrocodone Bitart/Acetaminophen ([place] 5-325 Mg) 1 tab PO Q6HR PRN PRN Reason: Moderate to Severe Pain Stop: 06/23/19 17:18 Albuterol Sulfate (Proventil Inhaler) 2 puff IH [id number] PRN PRN Reason: Shortness Of Breath Stop: 06/24/19 10:01 Amitriptyline HCl (Elavil) 25 mg PO HS [facility] Stop: 06/24/19 21:01 Last Admin: 12/23/18 21:18 Dose: 25 mg Documented by: Aspirin (Aspirin) 81 mg PO HS [facility] Stop: 06/23/19 21:01 Last Admin: 12/23/18 21:18 Dose: 81 mg Documented by: Duloxetine HCl (Cymbalta) 30 mg PO BID [facility] Stop: 06/23/19 21:01 Last Admin: 12/24/18 09:05 Dose: 30 mg Documented by: Gabapentin (Neurontin) 300 mg PO TID [facility] Stop: 06/24/19 15:31 Last Admin: 12/24/18 09:05 Dose: Not Given Documented by: Heparin Sodium (Porcine) (Heparin) 5,000 unit SQ Q12HCO [facility] Stop: 06/23/19 18:01 Last Admin: 12/24/18 05:52 Dose: 5,000 unit Documented by: Lamotrigine (Lamictal) 100 mg PO HS [facility] Stop: 06/24/19 21:01 Last Admin: 12/23/18 21:18 Dose: 100 mg Documented by: Levothyroxine Sodium (Synthroid) 88 mcg PO 0630 [facility] Stop: 06/25/19 06:31 Last Admin: 12/24/18 05:52 Dose: 88 mcg Documented by: Naloxone HCl (Narcan) 0.4 mg IVP Q2MPRN PRN PRN Reason: SEE COMMENTS Stop: 06/23/19 17:18 Naproxen (Naprosyn) 500 mg PO DAILY PRN; Protocol PRN Reason: Migraine Stop: 06/24/19 15:20 Last Admin: 12/24/18 09:05 Dose: 500 mg Documented by: Omeprazole (Prilosec) 40 mg PO DAILY@0630 [facility]; Protocol Stop: 06/24/19 06:31 Last Admin: 12/24/18 05:51 Dose: 40 mg Documented by: Ondansetron HCl (Zofran) 4 mg IVP Q8HR PRN PRN Reason: Nausea And Vomiting Stop: 06/23/19 17:18 Sumatriptan Succinate (Imitrex) 25 mg PO Q6HR PRN PRN Reason: migraine headache Stop: 06/24/19 17:56 Last Admin: 12/24/18 09:05 Dose: 25 mg Documented by: - Imaging and Cardiology Echo: report reviewed Consult Discharge Plan - Plan Referrals: Timmy Parks, LEATHER GOODS SALES REPRESENTATIVE [Non-Partnered Physician] -
--- NOTE | 2018-12-24 11:31 | Discharge Summary ---
- NOTES TO OUTPATIENT PROVIDER Notes to Outpatient Provider: f/u with PCP in one week. f/u with Cardiology as scheduled. Please start taking Prilosec 20 mg BID Orders not resulted at time of discharge: Pending orders 12/22/18 15:09 ECG 12 lead ECG [ECG] Stat Date of Encounter: 12/24/18 Time of Encounter: 10:30 - Discharge Diagnosis (1) Atypical chest pain Priority: Primary Status: Acute (2) Dysphagia Priority: Primary Status: Acute Qualifiers: Dysphagia type: esophageal phase Qualified Code(s): R13.10 - Dysphagia, unspecified (3) Migraine Priority: Secondary Status: Chronic Qualifiers: Migraine type: unspecified Status migrainosus presence: without status migrainosus Intractability: not intractable Qualified Code(s): G43.909 - Migraine, unspecified, not intractable, without status migrainosus (4) DVT prophylaxis Priority: Secondary Status: Acute (5) Hypothyroidism Priority: Secondary Status: Chronic Qualifiers: Hypothyroidism type: unspecified Qualified Code(s): E03.9 - Hypothyroidism, unspecified Hospital course: Ms. Ferreira is a 53 y/o F with known PMH of migraine, depression, anxiety, hypothyroidism and mild CAD ( Had LHC in 2009 which showed mild CAD ) now she presented to ER with chest pain. Pt stated her CP was located sub sternally and radiating to b/l neck, intermittent pain, 6/10 in severity lasted for 15-20 minutes. She did mention she had normal stress test at [place] 4 months ago. She was admitted in the hospital placed on data analysis manager. Her serial troponin came back as negative. Her 2D Echo showed preserved LVEF and no septal/wall motion abnormalities. She denied any active CP now. Patient was evaluated by executive manager who recommended to follow up with them as an outpatient for further workup, also suggested to complete current GI work for dysphagia. She also mentioned, she has been evaluated recently with barium swallow, EGD for dysphagia. Her dysphagia started a few years ago after her tonsillectomy. She does not remember the result of her tests but she is scheduled for esophageal manometry by our GI tomorrow. For now I recommended her to start taking PPI BID. - Time Spent with Patient Total time spent providing and/or coordinating discharge services: - Discharge Medications Prescriptions: New Aspirin 81 mg PO HS #30 tab.chew Omeprazole [PriLOSEC] 20 mg PO BIDAC #60 cap Continued Levothyroxine [Synthroid] 88 mcg PO DAILY Bupropion HCl [Wellbutrin Xl] 300 mg PO HS Amitriptyline [Elavil] 25 mg PO HS Tizanidine HCl [Zanaflex] 2 mg PO BID Estrogens, Conjugated [Premarin Cream] 0.25 appl VG 2XW Naproxen [Naprosyn] 500 mg PO DAILY PRN PRN Reason: Migraine Headache SUMAtriptan Succinate [Imitrex] 100 mg PO AD PRN PRN Reason: Migraine Headache Oxybutynin Chloride [Ditropan XL] 5 mg PO DAILY Discontinued Pantoprazole Sodium [Protonix] 40 mg PO DAILY Home Medications: Amitriptyline [Elavil] 25 mg PO HS 12/24/18 [History] Aspirin 81 mg PO HS #30 tab.chew 12/24/18 [Rx] Bupropion HCl [Wellbutrin Xl] 300 mg PO HS 12/24/18 [History] Estrogens, Conjugated [Premarin Cream] 0.25 appl VG 2XW 12/24/18 [History] Levothyroxine [Synthroid] 88 mcg PO DAILY 12/24/18 [History] Naproxen [Naprosyn] 500 mg PO DAILY PRN 12/24/18 [History] Omeprazole [PriLOSEC] 20 mg PO BIDAC #60 cap 12/24/18 [Rx] Oxybutynin Chloride [Ditropan XL] 5 mg PO DAILY 12/24/18 [History] SUMAtriptan Succinate [Imitrex] 100 mg PO AD PRN 12/24/18 [History] Tizanidine HCl [Zanaflex] 2 mg PO BID 12/24/18 [History] Allergies/Adverse Reactions: Allergy/AdvReac Type Severity Reaction Status Date / Time No Known Allergies Allergy Verified 11/10/18 08:56 Date of admission: 12/22/18 17:03 Primary care physician: PCP NONE Consults: 12/23/18 09:08 Consult to Cardiology [CONS] Routine Comment: Consulting Provider: Cardiology Nichole Reason for Consult: chest pain.. recent normal stress test 6 months ago from [facility] Time Notified: 09:09 Call Completed: Yes - Constitutional Vitals: Temp Pulse Resp BP Pulse Ox 98.4 F 62 17 123/75 97 12/24/18 07:45 12/24/18 07:45 12/24/18 07:45 12/24/18 07:45 12/24/18 07:45 General appearance: Present: A&O X 3, no acute distress, answers questions appropriately Exam: Gen: Alert, awake, Oriented to time,place and person Chest: Diminished breath sounds B/L, No wheezing, No crackles, No rales Heart: S1S2+ RRR No murmurs Abd: Soft, NT, BS +, No organomegaly Ext: No edema, pulses are palpable, No calf tenderness Neuro : No acute focal neuro deficits noticed Skin: No rash. - Patient Status Disposition: Home, Self-Care Condition: Good Overall status at discharge: patient is back to baseline - Discharge Instructions Follow Up With: Timmy Parks CNP [Non-Partnered Physician] - (Unable to schedule an appointment. Please call and schedule an appointment within 7-10 days after discharge.) Juvencio Payan MD [Partnered Physician] - 01/29/19 9:00 am Feliciano Morocho MD [Non-Partnered Physician] - (Appointment has been requested) Delfino Powell MD [Partnered Physician] - 12/25/18 7:30 am - Diet and Activity Activity: increase activity as tolerated Diet: low salt diet
--- NOTE | 2018-12-24 14:01 | Electrocardiograph Report ---
[facility] Test Date: 2018-12-22 Pat Name: Ayesha Ferreira Department: [id number] Room: 3B48 Gender: F Die Set Up Worker: : 1965 Requested By: Jhon Rojas Order Number: [id number] Reading MD: Kwadwo Lowery Measurements Intervals [place] Rate: 73 P: 77 AK: 139 QRS: 35 QRSD: 91 T: 60 QT: 389 QTc: 429 Interpretive Statements Sinus rhythm Low voltage, precordial leads Electronically Signed On 12-24-2018 13:59:39 EDT by Kwadwo Lowery
== END 2018-12-24 12:30 | disposition home or self-care (01) ==
LOC: EMEROOARM 15:04 → 3BNU 15:04 → SUATTDRO 17:03 → 3BNU 18:40
PROVIDERS: ADMIT Student in an Organized Health Care Education/Training Program; ATTEND Family Medicine